=== PATIENT | female | born 1935 | race Caucasian/White ===

== ENCOUNTER 2021-08-30 16:35 | Emergency (ER) | payer MEDICARE, MEDICAID, SELFPAY ==
[2021-08-30 16:40] VITALS: BP 141/97; PULSE 78; RESP 14; TEMP 36.8; O2SAT 91; BMI 23.8
--- NOTE | 2021-08-30 16:42 | W.ED.GENADLT ---
HPI - General Adult General: Chief complaint: Seizure Stated complaint: SEIZURE Time Seen by Provider: 08/30/21 16:37 History of Present Illness: HPI narrative: 85-year-old female with a history of colon cancer is currently on hospice. She was thought to have been having a seizure and transferred here. On arrival here she is verbally responsive. She has a known history of longstanding dementia the last several years is progressively worsening. He is never not having any active seizures. At times she does doze off she does not fully close her eyelids but when you stimulate her verbally she immediately wakes up and is actually responsive. Onset (ago): year(s) Severity: severe and similar to prior episodes Relieving factors: none Exacerbating factors: none Associated symptoms: Reports confusion; Deny chest pain, cough, diaphoresis, decreased appetite, dyspnea, fevers/chills, headache(s), malaise, nausea, rash, palpitations, seizures, short of breath, syncope, vomiting or weakness Treatments prior to arrival: none Review of Systems Const: Denies: malaise or diaphoresis ENMT: Denies: throat pain, ear or mastoid pain, nasal discharge or nasal congestion Card: Denies: chest pain, palpitations or syncope Resp: Denies: dyspnea GI: Denies: nausea or vomiting : Denies: flank pain, difficulty voiding, dysuria, urinary frequency or urinary urgency Skin/Breast: Denies: rash Neuro: Reports: confusion; Denies: headache(s) Physical Exam Const: COMMON NORMALS: no acute distress GENERAL APPEARANCE: cooperative and comfortable HENMT: COMMON NORMALS: normocephalic, atraumatic and hearing grossly normal bilaterally HEAD & SCALP: normocephalic and atraumatic Neck/C-Spine: COMMON NORMALS: no JVD Resp: COMMON NORMALS: normal respiratory effort, No retractions, No use of accessory muscles and clear to auscultation bilaterally AUSCULTATION: clear to auscultation bilaterally Cardio: COMMON NORMALS: no JVD, regular rate, regular rhythm and No murmurs present (Cardio) RATE: regular rate RHYTHM: regular rhythm GI: COMMON NORMALS: Soft to palpation and No hepatosplenomegaly present AUSCULTATION: Yes normoactive bowel sounds PALPATION: Yes Soft to palpation, No Tenderness to palpation present (GI), No Guarding due to palpation present (GI) and Yes No hepatosplenomegaly present Extremity: COMMON NORMALS: normal to inspection, capillary refill normal, no clubbing, cyanosis or edema, no calf tenderness and no pedal edema Skin: COMMON NORMALS: no rashes or lesions noted GENERAL SKIN EXAM: no rashes or lesions noted Course Vital Signs: Vital signs: Vital Signs Temperature 98.2 F 08/30/21 16:40 Pulse Rate 78 08/30/21 16:40 Respiratory Rate 14 08/30/21 16:40 Blood Pressure 141/97 08/30/21 16:40 Pulse Oximetry 91 08/30/21 16:40 MDM - General Adult MDM Narrative: Medical decision making narrative: Patient has nothing acute going on at this point her is at the bedside I also discussed with her attending of the skilled nursing. There is not really any interventions she is Do Not Recussitate she is at her baseline at this point we will discharge her back to the skilled nursing. She is not having a seizure I question if she actually had a seizure we see no evidence of it here attending agreed even if there was seizure we would not intervene at this point just provide supportive cares. Discharge Plan Discharge Patient Disposition: Home Clinical Impression: Dementia, Seizure Condition: Stable Discharge Orders: Discharge ED (Routine); Ordered 08/30/21 Ordered By: Derek Toledo Referrals: Derek Toledo, [Emergency Provider] - Discharge Diet: Usual diet Discharge Activity: Resume usual activity Patient Instructions: Opioid Safety Activity Restrictions/Additional Instructions: Continue current orders at the skilled nursing with nose changes. Follow-up with Dr. Mcbride to the skilled nursing. Coding Level of Care Code ED Web Administrator for Zane Pino
== END 2021-08-30 17:45 | disposition home or self-care (01) ==
PROVIDERS: Emergency Provider Family Medicine
DX: R56.9 Unspecified convulsions (principal); F03.90 Unspecified dementia, unspecified severity, without behavioral disturbance, psychotic disturbance, mood disturbance, and anxiety; Z85.038 Personal history of other malignant neoplasm of large intestine
CPT/HCPCS: 99283

== ENCOUNTER 2021-09-24 15:49 | Emergency (ER) | payer MEDICARE, MEDICAID, SELFPAY ==
--- NOTE | 2021-09-24 16:00 | XRR_ITS ---
PROCEDURE INFORMATION: Exam: XR Chest Exam date and time: 09/24/2021 4:00 PM Age: 85 years old Clinical indication: Cough and dyspnea; Additional info: Dyspnea/cough TECHNIQUE: Imaging protocol: XR of the chest. Views: 1 view. COMPARISON: CR Chest 1 [place] [id number] 10/07/2019 1:15 AM FINDINGS: Lungs: Left hilar to lower lobe atelectasis versus minimal infiltrate. Pleural spaces: Unremarkable. No pleural effusion. No pneumothorax. Heart/Mediastinum: Unremarkable. No cardiomegaly. Bones/joints: Unremarkable. XR/XR chest 1V portable [id number] IMPRESSION: Left hilar to lower lobe atelectasis versus minimal infiltrate. Radiation Dose CTDIVOL = (mGy): DLP = (mGy-cm)
[2021-09-24 16:01] VITALS: BP 121/62; PULSE 70; TEMP 36.3; O2SAT 95; BMI 30.2
--- NOTE | 2021-09-24 16:01 | ECG_ITS ---
[facility] Test Date: 2021-09-24 Pat Name: Naima Egan Department: Room: Gender: Female Biofuels Product Development Manager: : 1935 Requested By: Derek Preston Order Number: [id number] Brenden MD: Jenelle Melton M.D. Measurements Intervals [place] Rate: 67 P: -11 NV: 190 QRS: 35 QRSD: 75 T: 88 QT: 410 QTc: 435 Interpretive Statements SINUS RHYTHM LOW QRS VOLTAGE [QRS DEFLECTION < 0.5/1.0 mV IN LIMB/CHEST LEADS] SEPTAL MYOCARDIAL INFARCTION , PROBABLY OLD [40+ ms Q WAVE IN V1/V2] Compared to ECG 10/07/2019 06:20:30 Myocardial infarct finding now present Electronically Signed On 09-24-2021 17:52:59 RAG BALER by Jenelle Melton M.D. [id number]
[2021-09-24 16:18] LABS: Basophils # 0.1 10^3/uL (0.0-0.1); Basophils % 1.6 %; Eosinophils # 0.1 10^3/uL (0.0-0.8); Eosinophils % 1.7 %; Hematocrit 47.2 % (37.0-47.0); Hemoglobin 14.2 g/dL (11.5-15.3); Lymphocytes # 1.5 10^3/uL (0.8-4.8); Mean Corpuscular HGB Conc 30.1 g/dL (30.0-36.0); Mean Corpuscular Hemoglobin 27.1 pg (28.0-34.0); Mean Corpuscular Volume 90.1 fl (81-99); Mean Platelet Volume 10.2 fL (7.4-10.4); Monocytes # 0.7 10^3/uL (0.2-0.9); Neutrophils # 5.23 10^3/uL (1.8-7.7); Neutrophils % 67.5 %; Nucleated Red Blood Cells % 0 %; Platelet Count 384 10^3/cmm (130-400); Red Blood Count 5.24 10^6/uL (4.1-5.3); Red Cell Distribution Width 14.7 % (12.1-15.1); White Blood Count 7.7 10^3/uL (4.0-10.0)
[2021-09-24 16:30] LABS: Alanine Aminotransferase 10 U/L (0-33); Albumin Level 4.1 g/dL (3.5-5.2); Alkaline Phosphatase 92 IU/L (35-105); Anion Gap 15.1 (5-19); Aspartate Amino Transferase 11 U/L (0-32); Blood Urea Nitrogen 28 mg/dL (8-23); Calcium 9.5 mg/dL (8.5-10.5); Carbon Dioxide 28 mmol/L (22-29); Chloride 106 mmol/L (98-107); Globulin 1.9 g/dL (1.3-4.6); Glucose 139 mg/dL (65-115); Osmolality Calculated 306 mOsm/kg (285-295); Potassium 5.1 mmol/L (3.5-5.1); Sodium 144 mmol/L (136-145); Total Bilirubin 0.2 mg/dL (0.15-1.2)
--- NOTE | 2021-09-24 16:43 | W.ED.SOB ---
HPI - SOB/Dyspnea General: Chief Complaint: Shortness of Breath/Dyspnea Stated Complaint: RESPIRATORY DISTRESS Time Seen by Provider: 09/24/21 15:51 History of Present Illness: HPI Narrative: 85-year-old female patient arrives EMS from skilled nursing at 4 L/min. Yesterday he had low oxygen sats oxygen was added today continuing. Patient is a Do Not Recussitate skilled nursing sent here to be further evaluated and daughter at the bedside. Well acquainted this patient actually of taking care of her for several years. They are not particularly interested in a lot of aggressive treatment she is Do Not Recussitate and they do not want her to be hospitalized at this point see below. They do report increasing shortness of breath. She was seen prior to this for seizures which were actually not seizures but patient was just falling asleep is easily arousable and was discharged home after consultation with her primary care doctor. MD elicited complaint: shortness of breath and cough Pertinent past history: other (dementia) Severity: mild Exacerbating factors: coughing Relieving factors: oxygen, rest and upright position Associated symptoms: Deny cough, fever(s), myalgias, paresthesias, rash or vomiting Treatment prior to arrival: oxygen Review of Systems General: Reports: ROS unobtainable due to medical condition Const: Denies: fever(s) GI: Denies: vomiting Physical Exam Const: COMMON NORMALS: no acute distress GENERAL APPEARANCE: cooperative and comfortable HENMT: COMMON NORMALS: normocephalic, atraumatic and hearing grossly normal bilaterally HEAD & SCALP: normocephalic and atraumatic Resp: COMMON NORMALS: normal respiratory effort, No retractions, No use of accessory muscles and clear to auscultation bilaterally AUSCULTATION: clear to auscultation bilaterally Cardio: COMMON NORMALS: regular rate, regular rhythm and No murmurs present (Cardio) RATE: regular rate RHYTHM: regular rhythm GI: COMMON NORMALS: Soft to palpation and No hepatosplenomegaly present AUSCULTATION: Yes normoactive bowel sounds PALPATION: Yes Soft to palpation, No Tenderness to palpation present (GI), No Guarding due to palpation present (GI) and Yes No hepatosplenomegaly present Extremity: COMMON NORMALS: normal to inspection, capillary refill normal, no clubbing, cyanosis or edema, no calf tenderness and no pedal edema Course Vital Signs: Vital signs: Vital Signs Temperature 97.4 F L 09/24/21 16:01 Pulse Rate 70 09/24/21 16:01 Blood Pressure 121/62 09/24/21 16:01 Pulse Oximetry 95 09/24/21 16:01 MDM - SOB/Dyspnea MDM Narrative: Medical decision making narrative: Extensive conversation with the in the daughter at the bedside. At this point they do not wish to do any more hospitalizations. The rather treat as able at the skilled nursing and not transport anymore to the hospital they feel it is too difficult on the patient and he gets entire appropriate. Send the patient back to the skilled nursing continue oral antibiotics and follow along with primary care there. Lab Data: Labs: Lab Results 09/24/21 09/24/21 15:45 15:45 WBC 7.7 10^3/uL 10^3/ uL (4.0-10.0) RBC 5.24 10^6/uL 10^6 /uL (4.1-5.3) Hgb 14.2 g/dL g/dL (11.5-15.3) Hct 47.2 % H % (37.0-47.0) MCV 90.1 fl fl (81-99) MCH 27.1 pg L pg (28.0-34.0) MCHC 30.1 g/dL g/dL (30.0-36.0) RDW 14.7 % % (12.1-15.1) Plt Count 384 10^3/cmm 10^3 /cmm (130-400) MPV 10.2 fL fL (7.4-10.4) Neut % (Auto) 67.5 % % Lymph % (Auto) 19.0 % % [place] % (Auto) 9.0 % % Eos % (Auto) 1.7 % % Baso % (Auto) 1.6 % % Neut # (Auto) 5.23 10^3/uL 10^3 /uL (1.8-7.7) Lymph # (Auto) 1.5 10^3/uL 10^3/ uL (0.8-4.8) [place] # (Auto) 0.7 10^3/uL 10^3/ uL (0.2-0.9) Eos # (Auto) 0.1 10^3/uL 10^3/ uL (0.0-0.8) Baso # (Auto) 0.1 10^3/uL 10^3/ uL (0.0-0.1) Nucleated RBC % (a uto) 0 % % Nucleated RBCs # 0.0 /100WBC /100W BC Sodium 144 mmol/L mmol/L (136-145) Potassium 5.1 mmol/L mmol/L (3.5-5.1) Chloride 106 mmol/L mmol/L (98-107) Carbon Dioxide 28 mmol/L mmol/L (22-29) Anion Gap 15.1 (5-19) BUN 28 mg/dL H mg/dL (8-23) Creatinine 1.3 mg/dL H mg/dL (0.5-0.9) GFR Calculation Not Reportable Glucose 139 mg/dL H mg/dL (65-115) Calculated Osmolal ity 306 mOsm/kg H mOs m/kg (285-295) Calcium 9.5 mg/dL mg/dL (8.5-10.5) Total Bilirubin 0.2 mg/dL mg/dL (0.15-1.2) AST 11 U/L U/L (0-32) ALT 10 U/L U/L (0-33) Alkaline Phosphata se 92 IU/L IU/L (35-105) Total Protein 6.0 g/dL L g/dL (6.6-8.7) Albumin 4.1 g/dL g/dL (3.5-5.2) Globulin 1.9 g/dL g/dL (1.3-4.6) Discharge Plan Discharge Patient Disposition: Home Clinical Impression: Pneumonia Condition: Stable Discharge Orders: Discharge ED (Routine); Ordered 09/24/21 Ordered By: Derek Toledo Patient Instructions: Opioid Safety Activity Restrictions/Additional Instructions: Continue oxygen at home. Continue cefdinir 500 mg twice daily x7 days. Coding Level of Care Code ED Mentally Retarded Teacher for Zane Fwd Exam Detailed
== END 2021-09-24 18:48 | disposition home or self-care (01) ==
PROVIDERS: Emergency Provider Family Medicine
DX: J18.9 Pneumonia, unspecified organism (principal)
CPT/HCPCS: 71045; 80053; 85025; 93005; 99283

== ENCOUNTER 2023-06-10 17:21 | Emergency (ER) | payer MEDICARE, MEDICAID, SELFPAY ==
[2023-06-10 17:33] VITALS: BMI 19.7
[2023-06-10 17:50] VITALS: BP 145/69; PULSE 86; RESP 16; TEMP 37.2; O2SAT 98
--- NOTE | 2023-06-10 18:15 | XRR_ITS ---
PROCEDURE INFORMATION: Exam: XR Chest Exam date and time: 06/10/2023 6:21 PM Age: 87 years old Clinical indication: Other: Seizure TECHNIQUE: Imaging protocol: Radiologic exam of the chest. Views: 1 view. COMPARISON: CR XR chest 1V portable [id number] 09/24/2021 4:25 PM FINDINGS: Lungs: Mild accentuation of markings with technique. No focal infiltrate or consolidation. Pleural spaces: Unremarkable. No pleural effusion. No pneumothorax. Heart/Mediastinum: Unremarkable. No cardiomegaly. Vasculature: Arteriosclerosis of the thoracic aorta. Bones/joints: Thoracic dextroscoliosis. XR/XR chest 1V portable [id number] IMPRESSION: No acute cardiopulmonary abnormality.
--- NOTE | 2023-06-10 18:15 | CTR_ITS ---
PROCEDURE INFORMATION: Exam: CT Head Without Contrast Exam date and time: 06/10/2023 6:31 PM Age: 87 years old Clinical indication: Other: Seizure TECHNIQUE: Imaging protocol: Computed tomography of the head without contrast. Radiation optimization: All CT scans at this facility use at least one of these dose optimization techniques: automated exposure control; mA and/or kV adjustment per patient size (includes targeted exams where dose is matched to clinical indication); or iterative reconstruction. REPORTING DATA: Count of CT and Cardiac NM exams in prior 12 months: This patient has received 0 known CTs and 0 known cardiac nuclear medicine studies in the 12 months prior to the current study. COMPARISON: CT head wo con* [id number] 10/07/2019 1:03 AM RADIATION DOSE METRICS: Total DLP (mGy-cm): 552.88 FINDINGS: Brain: Atrophic or involutional change for age indicates volume loss. Periventricular hypodensity is seen bilaterally consistent with chronic small-vessel change. 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 Encephalomalacia associated with prior left occipital craniotomy noted within the peripheral left cerebellum. These findings are chronic with prior exam of 2019. No intracranial hemorrhage or hematoma is seen. No mass effect or shift of midline structures. No findings to indicate interval territorial or large vessel ischemic infarct. Cerebral ventricles: No ventriculomegaly. Paranasal sinuses: Visualized sinuses are unremarkable. No fluid levels. Mastoid air cells: Visualized mastoid air cells are well aerated. Bones/joints: Bone windows of the skull demonstrate prior left occipital craniotomy without acute abnormality. Soft tissues: Unremarkable. CT/CT head wo con* [id number] IMPRESSION: 1. Chronic changes as noted above. 2. No acute intracranial abnormality or significant change with prior exam.
--- NOTE | 2023-06-10 18:20 | W.ED.SEIZURE ---
HPI - Seizure General: Chief Complaint: Seizure Stated Complaint: Seizure Time Seen by Provider: 06/10/23 18:12 Limitations: altered mental status History of Present Illness: HPI Narrative: Presents to the ER by EMS from the [place] [facility] which what sounds like a 3-minute long witnessed seizure followed by a 45-minute postictal phase. Patient is never had seizures before. Patient has Alzheimer's dementia and cannot provide us with any history. Review of Systems General: Reports: ROS unobtainable due to mental status Physical Exam Const: COMMON NORMALS: no acute distress, average body habitus, healthy appearing, alert and well nourished HENMT: COMMON NORMALS: normocephalic, atraumatic, hearing grossly normal bilaterally, external ears normal, Normal external nose present and moist oral mucous membranes HEAD & SCALP: normocephalic and atraumatic NOSE: Normal external nose present EXTERNAL EAR: Yes external ears normal Eye: COMMON NORMALS: Equal, round and reactive pupils present, EOMs intact bilaterally, conjunctivae normal and no scleral icterus CONJUNCTIVA: Yes conjunctivae normal PUPIL: Yes Equal, round and reactive pupils present Neck/C-Spine: COMMON NORMALS: full ROM, no lymphadenopathy, supple, no meningeal signs, no JVD and Thyroid normal THYROID: Thyroid normal Chest: COMMONS NORMALS: normal inspection of the chest and normal palpation of entire chest wall Resp: COMMON NORMALS: normal respiratory effort, No retractions, No use of accessory muscles and clear to auscultation bilaterally AUSCULTATION: clear to auscultation bilaterally Cardio: COMMON NORMALS: no JVD, regular rate, regular rhythm, S1 normal heart sound present, S2 normal heart sound present, No gallops present (Cardio), No clicks present (Cardio) and No rub (Cardio) RATE: regular rate RHYTHM: regular rhythm HEART SOUNDS: S1 normal heart sound present and S2 normal heart sound present GI: COMMON NORMALS: Normal to inspection, nondistended, normoactive bowel sounds present, Soft to palpation, non-tender, No hepatosplenomegaly present and no masses PALPATION: Yes Soft to palpation and Yes No hepatosplenomegaly present : COMMON NORMALS: Yes no CVA tenderness BLADDER/KIDNEY EXAM: Yes no CVA tenderness Back/Pelvis: COMMON NORMALS: no CVA tenderness Neuro: SENSORIUM/ORIENTATION: Yes alert MENINGEAL SIGNS: Yes no meningeal signs Course Vital Signs: Vital signs: Vital Signs Temperature 98.9 F 06/10/23 17:50 Pulse Rate 70 06/10/23 19:06 Respiratory Rate 18 06/10/23 19:06 Blood Pressure 148/80 06/10/23 19:06 Pulse Oximetry 100 06/10/23 19:06 Oxygen Delivery Me thod Nasal Cannula 06/10/23 19:06 Oxygen Flow Rate 2 06/10/23 19:06 MDM - Seizure MDM Narrative Medical decision making narrative: Was brought to the ER with seizure-like activity from the [place] [facility]. Physical exam was performed lab work was obtained showed patient has a urinary tract infection and elevated prolactin. Upon talking to the it is possible patient has had seizures in the past. Patient was given 1 g Rocephin IV in the ER. Patient be discharged back to [facility] to take Bactrim DS for her urinary tract infection. Patient is to follow-up with her PCP in approximately 7 to 10 days. Differential Diagnosis Seizure Differential Diagnosis: Likely new onset seizure; Unlikely intractable seizure disorder, febrile convulsion, focal seizure, generalized seizure, epileptic seizure or status epilepticus Medical Records Attestation: I reviewed the patient's medical records. Lab Data 06/10/23 18:57 06/10/23 18:57 Labs: Radiology Impressions Chest X-Ray 06/10/23 18:15 IMPRESSION: No acute cardiopulmonary abnormality. Head CT 06/10/23 18:15 IMPRESSION: 1. Chronic changes as noted above. 2. No acute intracranial abnormality or significant change with prior exam. Laboratory Results WBC 12.9 10^3/uL (4.0-10.0) H 06/10/23 18:57 RBC 4.96 10^6/uL (4.1-5.3) 06/10/23 18:57 Hgb 13.1 g/dL (11.5-15.3) 06/10/23 18:57 Hct 43.6 % (37.0-47.0) 06/10/23 18:57 MCV 87.9 fl (81-99) 06/10/23 18:57 MCH 26.4 pg (28.0-34.0) L 06/10/23 18:57 MCHC 30.0 g/dL (30.0-36.0) 06/10/23 18:57 RDW 14.4 % (12.1-15.1) 06/10/23 18:57 Plt Count 335 10^3/cmm (130-400) 06/10/23 18:57 MPV 10.6 fL (7.4-10.4) H 06/10/23 18:57 Neut % (Auto) 80.7 % 06/10/23 18:57 Lymph % (Auto) 8.0 % 06/10/23 18:57 [place] % (Auto) 9.0 % 06/10/23 18:57 Eos % (Auto) 0.2 % 06/10/23 18:57 Baso % (Auto) 0.8 % 06/10/23 18:57 Neut # (Auto) 10.44 10^3/uL (1.8-7.7) H 06/10/23 18:57 Lymph # (Auto) 1.0 10^3/uL (0.8-4.8) 06/10/23 18:57 [place] # (Auto) 1.2 10^3/uL (0.2-0.9) H 06/10/23 18:57 Eos # (Auto) 0.0 10^3/uL (0.0-0.8) 06/10/23 18:57 Baso # (Auto) 0.1 10^3/uL (0.0-0.1) 06/10/23 18:57 Nucleated RBC % (auto) 0 % 06/10/23 18:57 Nucleated RBCs # 0.0 /100WBC 06/10/23 18:57 Sodium 144 mmol/L (136-145) 06/10/23 18:57 Potassium 4.2 mmol/L (3.5-5.1) 06/10/23 18:57 Chloride 109 mmol/L (98-107) H 06/10/23 18:57 Carbon Dioxide 23 mmol/L (22-29) 06/10/23 18:57 Anion Gap 16.2 (5-19) 06/10/23 18:57 BUN 27 mg/dL (8-23) H 06/10/23 18:57 Creatinine 0.9 mg/dL (0.5-0.9) 06/10/23 18:57 GFR Calculation Not Reportable 06/10/23 18:57 Glucose 127 mg/dL (65-115) H 06/10/23 18:57 Calculated Osmolality 305 mOsm/kg (285-295) H 06/10/23 18:57 Calcium 9.6 mg/dL (8.5-10.5) 06/10/23 18:57 Magnesium 1.7 mg/dL (1.7-2.3) 06/10/23 18:57 Total Bilirubin 0.2 mg/dL (0.15-1.2) 06/10/23 18:57 AST 10 U/L (0-32) 06/10/23 18:57 ALT 7 U/L (0-33) 06/10/23 18:57 Alkaline Phosphatase 87 U/L (35-105) 06/10/23 18:57 Total Protein 6.4 g/dL (6.6-8.7) L 06/10/23 18:57 Albumin 3.9 g/dL (3.5-5.2) 06/10/23 18:57 Globulin 2.5 g/dL (1.3-4.6) 06/10/23 18:57 Prolactin 42.50 ng/mL (4.8-23.3) H 06/10/23 18:57 Urine Color Yellow (Yellow) 06/10/23 20:34 Urine Appearance Sl hazy (CLEAR) A 06/10/23 20:34 Urine pH 6 (5-7) 06/10/23 20:34 Ur Specific [place] 1.020 (1.005-1.030) 06/10/23 20:34 Urine Protein 1+ (Negative) H 06/10/23 20:34 Urine Glucose (UA) Norm (Normal) 06/10/23 20:34 Urine Ketones 1+ (Negative) H 06/10/23 20:34 Urine Blood 2+ (Negative) H 06/10/23 20:34 Urine Nitrate Positive (Negative) H 06/10/23 20:34 Urine Bilirubin Neg (Negative) 06/10/23 20:34 Urine Urobilinogen Neg mg/dL (Negative) 06/10/23 20:34 Ur Leukocyte Esterase 2+ (Negative) H 06/10/23 20:34 Urine RBC 5-10 /hpf (0-2) H 06/10/23 20:34 Urine WBC 15-25 /hpf (0-5) H 06/10/23 20:34 Ur Squamous Epith Cells None /hpf (0-5) 06/10/23 20:34 Amorphous Sediment Not Reportable 06/10/23 20:34 Urine Bacteria 4+ /hpf (NONE) H 06/10/23 20:34 Discharge Plan Discharge Patient Disposition: Home Clinical Impression: Observed seizure-like activity Urinary tract infection Qualifiers: Urinary tract infection type: acute cystitis Hematuria presence: with hematuria Qualified Code(s): N30.01 - Acute cystitis with hematuria Condition: Stable Prescriptions: New sulfamethoxazole-trimethoprim [Bactrim DS] 800-160 mg tablet 1 tab PO BID 10 Days Qty: 20 0RF Discharge Orders: Discharge ED (Routine); Ordered 06/10/23 Ordered By: Mark Anthony Evangelista Patient Instructions: Urinary Tract Infection in Older Adults (ED), Seizures Activity Restrictions/Additional Instructions: Please take all your antibiotics as directed, please follow-up with your primary care practitioner next 7 to 10 days or sooner as needed. Coding Level of Care Code ED Embossing Clerk for Zane Pino
--- NOTE | 2023-06-10 18:41 | PC.NURSE ---
ASSUMED CARE [id number]
[2023-06-10 19:06] VITALS: BP 148/80; PULSE 70; RESP 18; O2SAT 100
[2023-06-10 19:18] LABS: Basophils # 0.1 10^3/uL (0.0-0.1); Basophils % 0.8 %; Eosinophils % 0.2 %; Hematocrit 43.6 % (37.0-47.0); Hemoglobin 13.1 g/dL (11.5-15.3); Mean Corpuscular Hemoglobin 26.4 pg (28.0-34.0); Mean Corpuscular Volume 87.9 fl (81-99); Mean Platelet Volume 10.6 fL (7.4-10.4); Monocytes # 1.2 10^3/uL (0.2-0.9); Neutrophils # 10.44 10^3/uL (1.8-7.7); Neutrophils % 80.7 %; Nucleated Red Blood Cells % 0 %; Platelet Count 335 10^3/cmm (130-400); Red Blood Count 4.96 10^6/uL (4.1-5.3); Red Cell Distribution Width 14.4 % (12.1-15.1); White Blood Count 12.9 10^3/uL (4.0-10.0)
[2023-06-10 19:55] LABS: Alanine Aminotransferase 7 U/L (0-33); Albumin Level 3.9 g/dL (3.5-5.2); Alkaline Phosphatase 87 U/L (35-105); Anion Gap 16.2 (5-19); Aspartate Amino Transferase 10 U/L (0-32); Blood Urea Nitrogen 27 mg/dL (8-23); Calcium 9.6 mg/dL (8.5-10.5); Carbon Dioxide 23 mmol/L (22-29); Chloride 109 mmol/L (98-107); Globulin 2.5 g/dL (1.3-4.6); Glucose 127 mg/dL (65-115); Magnesium 1.7 mg/dL (1.7-2.3); Osmolality Calculated 305 mOsm/kg (285-295); Potassium 4.2 mmol/L (3.5-5.1); Sodium 144 mmol/L (136-145); Total Bilirubin 0.2 mg/dL (0.15-1.2); Total Protein 6.4 g/dL (6.6-8.7)
[2023-06-10 20:51] LABS: Add Urine Microscopic? YES; Bilirubin Urine Neg (Negative); Blood Urine 2+ (Negative); Glucose Urine UA Norm (Normal); Ketones Urine 1+ (Negative); Leukocyte Esterase Urine 2+ (Negative); Nitrate Urine Positive (Negative); Protein Urine 1+ (Negative); Urine Appearance SL Hazy (CLEAR); Urine Color Yellow (Yellow); Urobilinogen Urine Neg (Negative); pH Urine 6 (5-7)
[2023-06-10 20:52] LABS: Add Urine Culture? Yes; Bacteria Urine 4+ /hpf; WBC Urine 15-25 /hpf (0-5)
[2023-06-10] MEDS: cefTRIAXone 1,000 MG in water for injection-sterile 2.1 ML 1 MG IM (21:15)
--- NOTE | 2023-06-15 15:39 | DCPLANNER ---
system developer associate manager called patient due to no primary care physician - patient sees Dr. Mcbride.
== END 2023-06-10 22:09 | disposition home or self-care (01) ==
PROVIDERS: Emergency Provider Emergency Medicine; PCP Internal Medicine
DX: R56.9 Unspecified convulsions (principal); N30.01 Acute cystitis with hematuria
CPT/HCPCS: 36415; 70450; 71045; 80053; 81001; 83735; 84146; 85025; 87077; 87086; 87186; 96372; 99285; J0696

== ENCOUNTER 2024-02-09 13:29 | Emergency (ER) | payer MEDICARE, MEDICAID, SELFPAY ==
[2024-02-09 13:33] VITALS: BP 101/50; PULSE 59; RESP 18; TEMP 36.8; O2SAT 96; BMI 18.8
--- NOTE | 2024-02-09 13:36 | XR_ITS ---
WS: [id number] Exam: XR chest 1V portable [id number] Date/Time of Exam: 02/09/2024 1:37 PM Reason For Exam: cp Comparison 06/10/2023. Chronic changes in the lower lung zones. No acute infiltrate or pneumothorax. No pleural effusion. No rmal heart size. The mediastinum is normal in contour. Atherosclerotic plaquing of the thoracic aorta . Bony structures appear normal. IMPRESSION: 1. Chronic changes. No acute process identified.
--- NOTE | 2024-02-09 13:44 | ECG_ITS ---
[facility] Test Date: 2024-02-09 Pat Name: Naima Egan Department: Room: Gender: Female Principal Data Architect: : 1935 Requested By: Deshaun Resendez Order Number: [id number] Brenden MD: Luis Hurley M.D. Measurements Intervals [place] Rate: 60 P: 55 NM: 180 QRS: 47 QRSD: 77 T: 55 QT: 407 QTc: 408 Interpretive Statements SINUS RHYTHM LOW QRS VOLTAGE IN PRECORDIAL LEADS [QRS DEFLECTION < 1.0 mV IN CHEST LEADS] NONSPECIFIC T-WAVE ABNORMALITY Compared to ECG 09/24/2021 16:32:36 T-wave abnormality now present Myocardial infarct finding no longer present Electronically Signed On 02-09-2024 17:39:15 CDT by Luis Hurley M.D. [email or web address].[email or web address]/store/[id number]
--- NOTE | 2024-02-09 13:45 | ED_ITS ---
HPI - Chest Pain 2 General: Chief Complaint: Chest Pain Stated Complaint: Chest pain Time Seen by Provider: 02/09/24 13:36 Source: EMS Mode of arrival: EMS Limitations: altered mental status History of Present Illness: 88-year-old female has a history of very severe dementia is here from [facility] she complained of chest pain at the [facility] today. Here when asked if she hurts anywhere she tells me now she is not in any pain she is orientated to self but not place or time. She is in no distress here. Review of Systems 2 General: Reports: ROS unobtainable due to mental status Physical Exam 2 Const: COMMON NORMALS: no acute distress; negative for patient oriented x3 HENMT: COMMON NORMALS: normocephalic and atraumatic HEAD & SCALP: n ormocephalic and atraumatic Neck/C-Spine: COMMON NORMALS: full ROM and supple Chest: COMMONS NORMALS: normal inspection of the chest and normal palpation of entire chest wall Resp: COMMON NORMALS: normal respiratory effort, No retractions, No use of accessory muscles and clear to auscultation bilaterally AUSCULTATION: clear to auscultation bilaterally Cardio: COMMON NORMALS: regular rate, regular rhythm and No murmurs present (Cardio) RATE: regular rate RHYTHM: regular rhythm GI: COMMON NORMALS: Normal to inspection, nondistended, normoactive bowel sounds present, Soft to palpation, non-tender and no masses PALPATION: Yes Soft to palpation Extremity: COMMON NORMALS: normal to inspection and full ROM Neuro: COMMON NORMALS: moves all extremities and no focal motor deficits; negative for patient oriented x3 Psych: COMMON NORMALS: mental status grossly normal, Normal thought process present and cooperative THOUGHT PROCESS: Normal thought process present Skin: COMMON NORMALS: no rashes or lesions noted and no wounds GENERAL SKIN EXAM: no rashes or lesions noted Course 2 Vital Signs: Vital signs: Vital Signs Temperature 98.2 F 02/09/24 13:33 Pulse Rate 59 L 02/09/24 13:33 Respiratory Rate 18 02/09/24 13:33 Blood Pressure 101/50 02/09/24 13:33 Pulse Oximetry 96 02/09/24 13:33 Oxygen Delivery Me thod Room Air 02/09/24 13:33 MDM - Chest Pain Medical Decision Making Patient presents for chest pain her EKG is normal she is complaining no pain here she is severely demented spoke to patient's family she is supposed be on comfort care and they did not want anything else done will discharge back to the [facility] at this time she has been well-appearing here Medical Records I reviewed the patient's medical records. Lab Data I reviewed the patient's lab results. 02/09/24 13:50 02/09/24 13:50 Laboratory Results WBC 4.66 10^3/uL (3.29-11.43) 02/09/24 13:50 RBC 4.39 10^6/uL (3.85-5.65) 02/09/24 13:50 Hgb 11.60 g/dL (11.27-16.99) 02/09/24 13:50 Hct 38.1 % (36-47) 02/09/24 13:50 MCV 86.8 fl (85-98) 02/09/24 13:50 MCH 26.4 pg (27-33) L 02/09/24 13:50 MCHC 30.4 g/dL (30-55) 02/09/24 13:50 RDW 15.2 % (12.1-15.1) H 02/09/24 13:50 Plt Count 339 10^3/cmm (157-399) 02/09/24 13:50 MPV 9.9 fL (7.4-10.4) 02/09/24 13:50 Neut % (Auto) 53.5 % 02/09/24 13:50 Lymph % (Auto) 30.0 % 02/09/24 13:50 [place] % (Auto) 11.6 % 02/09/24 13:50 Eos % (Auto) 2.4 % 02/09/24 13:50 Baso % (Auto) 1.9 % 02/09/24 13:50 Neut # (Auto) 2.49 10^3/uL (1.8-7.7) 02/09/24 13:50 Lymph # (Auto) 1.4 10^3/uL (0.8-4.8) 02/09/24 13:50 [place] # (Auto) 0.5 10^3/uL (0.2-0.9) 02/09/24 13:50 Eos # (Auto) 0.1 10^3/uL (0.0-0.8) 02/09/24 13:50 Baso # (Auto) 0.1 10^3/uL (0.0-0.1) 02/09/24 13:50 Nucleated RBC % (auto) 0 % 02/09/24 13:50 Nucleated RBCs # 0.0 /100WBC 02/09/24 13:50 PT 13.40 SECONDS (12.1-14.9) 02/09/24 13:50 INR 0.99 (0.8-1.2) 02/09/24 13:50 Sodium 146 mmol/L (136-145) H 02/09/24 13:50 Potassium 4.0 mmol/L (3.5-5.1) 02/09/24 13:50 Chloride 109 mmol/L (98-107) H 02/09/24 13:50 Carbon Dioxide 29 mmol/L (22-29) 02/09/24 13:50 Anion Gap 12.0 (5-19) 02/09/24 13:50 BUN 24 mg/dL (8-23) H 02/09/24 13:50 Creatinine 0.8 mg/dL (0.5-0.9) 02/09/24 13:50 GFR Calculation Not Reportable 02/09/24 13:50 Glucose 111 mg/dL (65-115) 02/09/24 13:50 Calculated Osmolality 307 mOsm/kg (285-295) H 02/09/24 13:50 Calcium 9.2 mg/dL (8.5-10.5) 02/09/24 13:50 Total Bilirubin 0.2 mg/dL (0.15-1.2) 02/09/24 13:50 AST 9 U/L (0-32) 02/09/24 13:50 ALT 6 U/L (0-33) 02/09/24 13:50 Alkaline Phosphatase 81 U/L (35-105) 02/09/24 13:50 Troponin T Baseline 29 ng/L (0-10) H 02/09/24 13:50 Total Protein 6.0 g/dL (6.6-8.7) L 02/09/24 13:50 Albumin 3.7 g/dL (3.5-5.2) 02/09/24 13:50 Globulin 2.3 g/dL (1.3-4.6) 02/09/24 13:50 Lipase 15 U/L (13-60) 02/09/24 13:50 All radiology interpretation(s) finalized by discharge EKG Data EKG 1: I personally reviewed and interpreted this EKG as follows: EKG interpretation date: 02/09/24 EKG interpretation time: 13:44 Interpretation: nsr hr [address] or t wave abnormalitie qrs 77 qtc 408 Discharge Plan Discharge Patient Disposition: Home Clinical Impression: Chest pain Discharge Orders: Discharge ED (Routine); Ordered 02/09/24 Ordered By: Deshaun Resendez Referrals: Kendall Mcbride DO [Primary Care Provider] - Discharge Diet: Advance as tolerated Discharge Activity: Resume usual activity Patient Instructions: Chest Pain (ED) Coding Level of Care Code ED Conventional Underwriter for Zane Pino
[2024-02-09 14:03] LABS: Basophils # 0.1 10^3/uL (0.0-0.1); Basophils % 1.9 %; Eosinophils # 0.1 10^3/uL (0.0-0.8); Eosinophils % 2.4 %; Hematocrit 38.1 % (36-47); Lymphocytes # 1.4 10^3/uL (0.8-4.8); Mean Corpuscular HGB Conc 30.4 g/dL (30-55); Mean Corpuscular Hemoglobin 26.4 pg (27-33); Mean Corpuscular Volume 86.8 fl (85-98); Mean Platelet Volume 9.9 fL (7.4-10.4); Monocytes # 0.5 10^3/uL (0.2-0.9); Monocytes % 11.6 %; Neutrophils # 2.49 10^3/uL (1.8-7.7); Neutrophils % 53.5 %; Nucleated Red Blood Cells % 0 %; Platelet Count 339 10^3/cmm (157-399); Red Blood Count 4.39 10^6/uL (3.85-5.65); Red Cell Distribution Width 15.2 % (12.1-15.1); White Blood Count 4.66 10^3/uL (3.29-11.43)
[2024-02-09 14:11] LABS: INR 0.99 (0.8-1.2)
--- NOTE | 2024-02-09 14:13 | PC.PHAR ---
Addendum entered by Ksenia Quezada 02/09/24 14:59: medications entered are from the [facility] that [facility] faxed to us Original Note: pt is from [facility] [phone] kali [phone] sandrine will fax [facility]
[2024-02-09 14:17] LABS: Alanine Aminotransferase 6 U/L (0-33); Albumin Level 3.7 g/dL (3.5-5.2); Alkaline Phosphatase 81 U/L (35-105); Aspartate Amino Transferase 9 U/L (0-32); Blood Urea Nitrogen 24 mg/dL (8-23); Calcium 9.2 mg/dL (8.5-10.5); Carbon Dioxide 29 mmol/L (22-29); Chloride 109 mmol/L (98-107); Creatinine Clr Calc Pharmacy 39.7209; Globulin 2.3 g/dL (1.3-4.6); Glucose 111 mg/dL (65-115); Lipase 15 U/L (13-60); Osmolality Calculated 307 mOsm/kg (285-295); Sodium 146 mmol/L (136-145); Total Bilirubin 0.2 mg/dL (0.15-1.2)
[2024-02-09 14:19] LABS: Troponin(5th) Baseline 29 ng/L (0-10)
[2024-02-09 20:25] VITALS: BP 138/74; PULSE 73; RESP 16; O2SAT 93
[2024-02-09 23:11] VITALS: BP 116/56; PULSE 73; RESP 16; O2SAT 94
[2024-02-10 00:30] VITALS: BP 112/57; PULSE 85; RESP 16; O2SAT 91
== END 2024-02-10 02:30 | disposition home or self-care (01) ==
PROVIDERS: Emergency Provider Emergency Medicine; PCP Internal Medicine
DX: R07.9 Chest pain, unspecified (principal)
CPT/HCPCS: 71045; 80053; 83690; 84484; 85025; 85610; 93005; 99285